=== PATIENT | male | born 1955 | race African-American/Black ===

== ENCOUNTER 2017-01-27 07:46 | Day surgery (SDC) | payer OTHER ==
[2017-01-25 11:46] VITALS: BMI 25.7
--- NOTE | 2017-01-27 08:18 | HP ---
History & Physical Update - History History: No Change - Physical Physical: No Change - Assessment Assessment: No Change - Plan Plan: No Change (Initial H&P is complete and in patient's paper chart. Completed by Dr. Sherri Fraser on 01/14/2017.)
[2017-01-27] MEDS ORDERED: MIDAZOLAM HCL 2 MG/2 ML SINGLE DOSE VIAL ONE ×2 (08:30)
[2017-01-27] MEDS ORDERED: ROCURONIUM BROMIDE 50 MG/5 ML VIAL ONE (08:53)
[2017-01-27] MEDS ORDERED: GLYCOPYRROLATE 0.2 MG/1 ML VIAL ONE (09:02)
[2017-01-27] MEDS ORDERED: ceFAZolin SODIUM 1 GM VIAL IVPB ONE (09:15)
[2017-01-27] MEDS ORDERED: ceFAZolin SODIUM 1 GM VIAL ONE (09:15)
[2017-01-27] MEDS ORDERED: ONDANSETRON 4 MG/2 ML VIAL IVPUSH PRN (09:27)
[2017-01-27] MEDS ORDERED: oxyCODONE HCL 5 MG TABLET PO PRN (09:27)
[2017-01-27] MEDS ORDERED: PROMETHAZINE HCL 25 MG/1 ML VIAL IVPUSH PRN (09:27)
[2017-01-27] MEDS ORDERED: LACTATED RINGERS SOLUTION 1,000 ML IV SCH (09:30)
[2017-01-27] MEDS ORDERED: NEOSTIGMINE METHYLSULFATE 0.5 MG/ML - 10 ML MDV ONE (09:59)
[2017-01-27] MEDS ORDERED: ACETAMINOPHEN 1000 MG/100 ML VIAL (NON FORMULARY) IVPB ONE (10:08)
--- NOTE | 2017-01-27 10:13 | OP ---
Operative Note - Note: Operative Date: 01/27/17 Pre-Operative Diagnosis: Right shoulder Rotator Cuff Tear Operation: Right shoulder arthroscopy, subacromial decompression, repair rotator cuff with anchors x2 Post-Operative Diagnosis: Same as Pre-op Surgeon: Sha Gonzalez Insurance Assistant: Grover Rene Anesthesiologist/SENIOR DYNAMICS CRM DEVELOPER: Mya Cruz Anesthesia: General Estimated Blood Loss (mls): 10 Fluid Volume Replaced (mls): 700 Operative Report Dictated: Yes
[2017-01-27] MEDS ORDERED: ACETAMINOPHEN INJECTION 100 ML IVPB ONE (11:21)
--- NOTE | 2017-01-27 11:30 | SURG ---
Surgery Events Specialist Note Events Specialist: Grover Rene PA-C Date of Service: 01/27/17 Diagnosis: Right shoulder rotator cuff tear Procedure: Right shoulder arthroscopy, subacromial decompression, repair rotator cuff with anchors x2 I was present for the entirety of the operative procedure. For further detail, please refer to operative report. Visit type - Case Type Case Type: Scheduled Admission - New patient This patient is new to me today: Yes Date on this admission: 01/27/17
[2017-01-27] MEDS ORDERED: oxyCODONE HCL 5 MG TABLET ONE (12:12)
[2017-01-27 12:52] VITALS: BP 152/74; PULSE 52; TEMP 97
--- NOTE | 2017-01-28 15:22 | PATH ---
Surgical Pathology Report Patient Name: GIULIANA CHRIS [facility]. Rec. #: [id number] /Age/Gender: 1955 (Age: 61) / M Account: [id number] Location: [facility] Taken: 01/27/2017 Received: 01/27/2017 Reported: 01/28/2017 Physicians: Sha Gonzalez M.D. Specimen(s) Received RIGHT SHOULDER SHAVINGS Clinical History Right shoulder impingement syndrome, rotator cuff tear Final Diagnosis RIGHT SHOULDER, ARTHROSCOPIC SHAVING: PORTIONS OF SYNOVIUM, CARTILAGE, SKELETAL MUSCLE AND BONE CONSISTENT WITH ARTHROSCOPIC SHAVINGS. Electronically Signed Zurdo Weathers M.D. Gross Description Received in formalin, labeled "right shoulder shavings," is a 4.8 x 4.0 x 0.4 cm. aggregate of santos-yellow soft tissue fragments. A assisted sales representative portion is submitted in one cassette. /01/27/201701/27/2017
--- NOTE | 2017-01-28 15:34 | OP ---
DATE OF OPERATION: 01/27/2017 PREOPERATIVE DIAGNOSIS: Right rotator cuff tear. POSTOPERATIVE DIAGNOSIS: Right rotator cuff tear. PROCEDURE: Right shoulder arthroscopy with subacromial debridement of soft tissue and bone and arthroscopic rotator cuff repair. SURGICAL ATTENDING: Sha Gonzalez MD FARMWORKER VEGETABLE: PRICILLA Thao ANESTHESIA: Regional and general. CLOSURE: Two SwiveLocks with FiberWire inverted mattress suture, 3-0 nylon for skin. ESTIMATED BLOOD LOSS: Negligible. COMPLICATIONS: None. CONDITION TO RECOVERY ROOM: Stable. DESCRIPTION OF OPERATIVE PROCEDURE: Patient taken to the operating room on January 27, 2017. General and scalene block was administered by the anesthesiologist. IV Kefzol administered prophylactically prior to the case. Patient was placed in the beach chair position with all prominences well padded. Right shoulder area was prepped and draped in the usual sterile fashion for diagnostic arthroscopy of the glenohumeral joint was performed. A posterior portal was made 2 fingerbreadths below the acromion, first with a 15 blade, followed by a blunt trocar. Circumferential exam of the glenohumeral joint revealed the following: Intact glenoid and humeral head articular cartilage, intact labrum circumferentially, intact biceps and biceps anchor. Intact subscapularis to its insertion. Looking superiorly, the insertion of the supraspinatus was yellow and was very, very thin and covered with some fibrinous material. This area was marked from the inside. The trocar was removed from the shoulder after the fluid was drained. Posterior trocar was redirected in the subacromial space. An accessory lateral portal was made using a 15 blade, followed by a blunt trocar. A bursectomy was performed using the ArthroCare device. The coracoacromial ligament was identified and detached from the anterior acromion and was visualized to drop inferiorly once further debrided. A subacromial debridement of bone up to the appropriate height, giving a good gap for the rotator cuff was performed, smoothing it posteriorly. Looking inferiorly on the humeral head, the fibrous tissue encasing the humeral head was debrided using the ArthroCare, exposing the rotator cuff beneath. The rotator cuff was found to have a 95% thickness tear of the supraspinatus. Slight probing revealed removing of the fibrinous material, exposing the rotator cuff tear. This was completed using the shaver. The bed in the greater tuberosity was debrided and burred to stimulate some bleeding bone. Multiple horizontal mattress sutures were placed in the rotator cuff using the Scorpio device. Two SwiveLocks were used to fixate these sutures to the greater tuberosity, and then the sutures were cut snug. Probing the rotator cuff revealed good tension of the rotator cuff and excellent repair to the greater tuberosity. The shoulder was irrigated. Portals were closed using a 3-0 nylon horizontal mattress suture. A sterile Aquacel dressing followed by a shoulder immobilizer was applied. The patient was awakened from anesthesia and transferred to recovery room in stable condition. No complications. Estimated blood loss negligible. Zeina [id number]
== END 2017-01-27 12:50 | disposition home or self-care (01) ==
LOC: JASU-SURG 07:46
PROVIDERS: ATTEND Orthopaedic Surgery
PROC: 0LB14ZZ Excision of Right Shoulder Tendon, Percutaneous Endoscopic Approach (ICD-10-PCS; principal; 2017-01-27 09:30)
PROC: 0RBJ4ZZ Excision of Right Shoulder Joint, Percutaneous Endoscopic Approach (ICD-10-PCS; 2017-01-27 09:30)
DX: M75.101 Unspecified rotator cuff tear or rupture of right shoulder, not specified as traumatic (principal)
CPT/HCPCS: 88304-TC; 94760

== ENCOUNTER 2017-01-27 16:54 | Emergency (ER) | payer OTHER ==
[2017-01-27 17:07] VITALS: TEMP 97.8; BMI 26.4
--- NOTE | 2017-01-27 17:12 | PDOC ---
History of Present Illness - General History Source: Patient Exam Limitations: No Limitations - History of Present Illness Initial Comments: 01/27/17 17:50 The patient is a 61 year old male, with a significant past medical history of a kidney transplant(9 months ago), pancreatitis, hypertension, and hyperlipidemia , who presents to the emergency department complaining of urinary retention s/p Right shoulder arthroscopy 2 days ago. The patient reports he has been worried because he has not produce any urine since his right shoulder arthroscopy. He reports he feels like his bladder is full, but he is unable to produce urine. Patient denies any flank pain, dysuria, hematuria, or frequency. Patient has had no complications since his kidney transplant 9 months ago, up until his recent surgery. He denies any abdominal pain, nausea, vomiting, diarrhea, or constipation. He denies any fever, chills, or weakness. Allergies: Moxifloxacin, NSAIDS, Avalox Past Surgical History: Right shoulder arthroscopy, Kidney transplant Social History: Occasional ETOH use. Non smoker. No recreational drug use. PCP: Dr. Fraser <Jolene Fritz - Last Filed: 01/27/17 17:50> <Adolfo Jaimes - Last Filed: 01/31/17 09:33> - General Chief Complaint: Urinary Problem Stated Complaint: URINARY PROBLEN Time Seen by Provider: 01/27/17 17:11 Past History <Jolene Fritz - Last Filed: 01/27/17 17:50> - Past Medical History Anemia: No Asthma: No Cancer: No Cardiac Disorders: No CVA: No COPD: No CHF: No Dementia: No Diabetes: No Dialysis: No (KIDNEY TRANSPLANT) GI Disorders: No (PANCREATITIS) HTN: Yes Hypercholesterolemia: Yes Liver Disease: No Seizures: No Thyroid Disease: No - Surgical History Abdominal Surgery: No Appendectomy: No Cardiac Surgery: No Cholecystectomy: No Lung Surgery: No Neurologic Surgery: No Orthopedic Surgery: No - Psycho/Social/Smoking Cessation Hx Anxiety: No Suicidal Ideation: No Smoking History: Never smoked Hx Alcohol Use: Yes (RARE) Drug/Substance Use Hx: No Substance Use Type: None Hx Substance Use Treatment: No <Adolfo Jaimes - Last Filed: 01/31/17 09:33> - Past Medical History Allergies/Adverse Reactions: Allergies Allergy/AdvReac Type Severity Reaction Status Date / Time moxifloxacin Allergy Difficulty Verified 01/27/17 17:07 Breathing NSAIDS (Non-Steroidal Allergy Verified 01/27/17 08:22 Anti-Inflamma avalox Allergy Severe swelling, Uncoded 01/27/17 08:36 kidney damage Home Medications: Ambulatory Orders Aspirin [ASA -] 81 mg PO DAILY 01/25/17 Atorvastatin Ca [Lipitor] 10 mg PO HS 01/25/17 Finasteride [Proscar -] 5 mg PO HS 01/25/17 Losartan Potassium [Cozaar -] 50 mg PO HS 01/25/17 Metoprolol Tartrate [Lopressor] 75 mg PO BID 01/25/17 Nifedipine [Procardia Xl] 60 mg PO BID 01/25/17 Prednisone [Deltasone -] 1 mg PO DAILY 01/25/17 Sodium Bicarbonate - 650 mg PO BID 01/25/17 Tacrolimus [Prograf] 1 mg PO BID 01/25/17 Tacrolimus [Prograf] 5 mg PO BID 01/25/17 Oxycodone HCl/Acetaminophen [Percocet 5-325 mg Tablet -] 1 - 2 tab PO Q6H #60 tab MDD 6 01/27/17 Review of Systems - Review of Systems Able to Perform ROS?: Yes Comments:: 01/27/17 17:50 GENERAL/CONSTITUTIONAL: No fever or chills. No weakness. HEAD, EYES, EARS, NOSE AND THROAT: No change in vision. No ear pain or discharge. No sore throat. CARDIOVASCULAR: No chest pain or shortness of breath. RESPIRATORY: No cough, wheezing, or hemoptysis. GASTROINTESTINAL: No nausea, vomiting, diarrhea or constipation. GENITOURINARY: Yes: +Urinary retention.No dysuria, frequency, or change in urination. MUSCULOSKELETAL: No joint or muscle swelling or pain. No neck or back pain. SKIN: No rash NEUROLOGIC: No headache, vertigo, loss of consciousness, or change in strength/ sensation. ENDOCRINE: No increased thirst. No abnormal weight change. HEMATOLOGIC/LYMPHATIC: No anemia, easy bleeding, or history of blood clots. ALLERGIC/IMMUNOLOGIC: No hives or skin allergy. PSYCH: Yes: +Nervous. <Fritz,Giomilsy - Last Filed: 01/27/17 17:50> *Physical Exam - Vital Signs Last Vital Signs Temp Pulse Resp BP Pulse Ox 97.8 F 73 20 141/92 96 07/19/17 17:03 01/27/17 17:03 01/27/17 17:03 01/27/17 17:03 01/27/17 17:03 <Jolene Fritz - Last Filed: 01/27/17 17:50> - Vital Signs Last Vital Signs Temp Pulse Resp BP Pulse Ox 97.8 F 73 20 141/92 96 01/27/17 17:03 01/27/17 17:03 01/27/17 17:03 01/27/17 17:03 01/27/17 17:03 <Adolfo Jaimes - Last Filed: 01/31/17 09:33> Medical Decision Making - Medical Decision Making 01/27/17 17:52 Ramos was going to be placed for acute urinary retention, but after the nurse arrived to the room patient drank fluids and was able to produce urine without the ramos. Patient will be discharged home. <Jolene Fritz - Last Filed: 01/27/17 17:50> *DC/Admit/Observation/Transfer - Attestations Scribe Attestion: 01/27/17 17:53 Documentation prepared by Jolene Fritz, acting as emergency medical dispatcher for Adolfo Jaimes DO. <Jolene Fritz - Last Filed: 01/27/17 17:50> - Attestations Physician Attestion: 01/27/17 17:12 I, Dr. Adolfo Jaimes, attest that this document has been prepared under my direction and personally reviewed by me in its entirety. I further attest, that it accurately reflects all work, treatment, procedures and medical decision -making performed by me. <Adolfo Jaimes - Last Filed: 01/31/17 09:33> Diagnosis at time of Disposition: Urinary Retention - Discharge Dispostion Disposition: HOME - Referrals Referrals: Sherri Frsaer MD [Primary Care Provider] - - Patient Instructions Printed Discharge Instructions: DI for Urinary Retention in Men Additional Instructions: Return to us if any problems
[2017-01-27] MEDS ORDERED: LIDOCAINE HCL 2% JELLY (5 ML/TUBE) ONE (17:35)
[2017-01-27 18:25] VITALS: BP 156/87; PULSE 62
== END 2017-01-27 18:24 | disposition home or self-care (01) ==
LOC: JER 16:54
DX: R33.9 Retention of urine, unspecified (principal); Z94.0 Kidney transplant status; I10 Essential (primary) hypertension; E78.5 Hyperlipidemia, unspecified; K85.90 Acute pancreatitis without necrosis or infection, unspecified
CPT/HCPCS: 99281-25